=== PATIENT | female | born 1955 | race Caucasian/White ===

== ENCOUNTER → 2017-07-08 | Outpatient (CLI) | payer BC | LOC: BMCIMAGING 08:27 | PROVIDERS: ATTEND Family Medicine | DX: Z13.820 Encounter for screening for osteoporosis (principal); M85.80 Other specified disorders of bone density and structure, unspecified site; R10.9 Unspecified abdominal pain; K76.0 Fatty (change of) liver, not elsewhere classified ==

== ENCOUNTER → 2017-07-09 | Outpatient (CLI) | payer BC | LOC: BMCIMAGING 08:25 | PROVIDERS: ATTEND Family Medicine | DX: Z12.31 Encounter for screening mammogram for malignant neoplasm of breast (principal); Z80.3 Family history of malignant neoplasm of breast | CPT/HCPCS: G0202 ==

== ENCOUNTER 2018-04-22 15:53 | Observation (INO) | payer BC ==
--- NOTE | 2018-04-22 16:11 | EDPHY ---
H & P Time Seen by Provider: 04/22/18 16:10 HPI/ROS: CHIEF COMPLAINT: Transient loss of vision HISTORY OF PRESENT ILLNESS: 62-year-old woman has high triglycerides, no previous history of ophthalmology problem or stroke. She was turning to the side at 6:30 a.m. To get something off her dresser when she suddenly noticed half of her right eye vision was gone and then 10 seconds later her entire right eye vision was gone. It lasted about a minute and half was associated with very mild headache and then resolved. She covered her right eye and the left eye vision was normal, then covering her left eye she could not see anything. She did not have diplopia or ataxia or trouble with speech or strength or sensation in extremities. Loss of vision was essentially almost complete, she could only see only a doss color. Now her vision is back to normal. REVIEW OF SYSTEMS: Eye: HPI ENT: no sore throat Cardiac: no chest pain or syncope Pulmonary: no cough or SOB Abdomen: no vomiting, diarrhea, abdominal pain Musculoskeletal: She has chronic arthritis but no change from usual Skin: no rash Neuro: HPI Constitutional: no fever : no urinary symptoms A comprehensive 10 point review of systems is otherwise negative aside from elements mentioned in the history of present illness. PAST MEDICAL HISTORY: Arthritis, fatty liver, hysterectomy, high triglycerides Social history: Nonsmoker General Appearance: Alert and conversant, cooperative. Eyes: No scleral icterus. Pupils equal reactive extraocular motion intact. Visual schumacher intact to confrontation. ENT, Mouth: Normal mucous membranes. Respiratory: Normal respiratory effort, breath sounds equal, lungs are clear to auscultation. Cardiovascular: Regular rate and rhythm. No murmur. No carotid bruit. Gastrointestinal: Abdomen is soft and non tender. Neurological: Alert, face symmetric, normal motor and sensory in extremities. Speech fluent and normal [id number] and no pronator drift, ambulatory without ataxia. Skin: Warm and dry, no rashes. Musculoskeletal: No peripheral edema. Psychiatric: Not agitated. Emergency Department course/MDM: Patient presents with TIA symptoms of transient painless vision loss in the right eye which have completely resolved. Workup for TIA discussed and consented, 23 hr observation to hospital. 1844: CT per Bennie subtle low density left internal capsule, otherwise negative. 1855: CT results discussed with the patient. Negative angiography per Dr. Bennie, of the head. Negative angio neck, needs workup for thyroid finding 8mm nodule left lobe, per . Smoking Status: Never smoked Constitutional: Initial Vital Signs Temperature (C) 36.6 C 04/22/18 16:01 Heart Rate 83 04/22/18 16:01 Respiratory Rate 18 04/22/18 16:01 Blood Pressure 150/88 H 04/22/18 16:01 O2 Sat (%) 93 04/22/18 16:01 O2 Delivery Mode Room Air Allergies/Adverse Reactions: erythromycin base Allergy (Verified 04/22/18 16:00) Home Medications: Medication Instructions Recorded NK [No Known Home Meds] 04/22/18 Medical Decision Making - Diagnostics EKG Interpretation: 12-lead EKG interpreted by me; official reading is in trace master. My interpretation is sinus rhythm rate 72 and normal intervals. Imaging Results: Imaging Impressions Head CT 04/22/18 17:17 Impression: Subtle hypodensity in the left external capsule may be in indicator of left middle cerebral territory infarction. Concordant results called to Dr. Vignesh Castillo at 18:46 PM General information for patients regarding this examination can be found at [email or web address]. If you have questions or comments about this report, please contact me at (hospital) or [phone] (cell). Head CTA 04/22/18 17:17 Impression: Normal CT angiogram of the brain. No evidence for embolism or thrombosis. Final concordant results discussed with Dr. Vignesh Castillo at 18:53 PM. Imaging: Discussed imaging studies w/ cell plasterer Radiologist Differential Diagnosis: Differential for sudden painless vision loss considered including but not limited to venous occlusion, central retinal artery occlusion, TIA, glaucoma Consult/Admit Bed Type: [place] [id number] - Data Points Laboratory Results: Laboratory Results 04/22/18 16:30 04/22/18 16:30 04/22/18 04/22/18 04/22/18 18:18 17:56 16:30 WBC RBC Hgb POC Hgb 14.3 gm/dL gm/dL (12.6-16.3) Hct POC Hct 42 % % (38-47) MCV MCH MCHC RDW Plt Count MPV Neut % (Auto) Lymph % (Auto) Rosebud % (Auto) Eos % (Auto) Baso % (Auto) Nucleat RBC Rel Count Absolute Neuts (auto) Absolute Lymphs (auto) Absolute Monos (auto) Absolute Eos (auto) Absolute Basos (auto) Absolute Nucleated RBC Immature Gran % Immature Gran # PT INR POC Sodium 139 mEq/L mEq/L (135-145) Sodium 134 mEq/L L mEq/L (135-145) POC Potassium 3.9 mEq/L mEq/L (3.3-5.0) Potassium 4.2 mEq/L mEq/L (3.3-5.0) POC Chloride 102 mEq/L mEq/L (97-110) Chloride 104 mEq/L mEq/L (97-110) Carbon Dioxide 26 mEq/l mEq/l (22-31) Anion Gap 4 mEq/L L mEq/L (8-16) POC BUN 9 mg/dL mg/dL (7-23) BUN 11 mg/dL mg/dL (7-23) Creatinine 0.4 mg/dL L mg/dL (0.6-1.0) POC Creatinine 0.4 mg/dL L mg/dL (0.6-1.0) Estimated GFR > 60 Glucose 103 mg/dL H mg/dL (70-100) POC Glucose 96 mg/dL mg/dL (70-100) Calcium 9.5 mg/dL mg/dL (8.5-10.4) POC Troponin I 0.00 ng/mL ng/mL (0.00-0.08) 04/22/18 04/22/18 16:30 16:30 WBC 5.79 10^3/uL 10^3/uL (3.80-9.50) RBC 4.82 10^6/uL 10^6/uL (4.18-5.33) Hgb 15.1 g/dL g/dL (12.6-16.3) POC Hgb Hct 42.8 % % (38.0-47.0) POC Hct MCV 88.8 fL fL (81.5-99.8) MCH 31.3 pg pg (27.9-34.1) MCHC 35.3 g/dL g/dL (32.4-36.7) RDW 12.3 % % (11.5-15.2) Plt Count 288 10^3/uL 10^3/uL (150-400) MPV 9.8 fL fL (8.7-11.7) Neut % (Auto) 57.2 % % (39.3-74.2) Lymph % (Auto) 31.8 % % (15.0-45.0) Rosebud % (Auto) 8.1 % % (4.5-13.0) Eos % (Auto) 1.7 % % (0.6-7.6) Baso % (Auto) 1.0 % % (0.3-1.7) Nucleat RBC Rel Count 0.0 % % (0.0-0.2) Absolute Neuts (auto) 3.31 10^3/uL 10^3/uL (1.70-6.50) Absolute Lymphs (auto) 1.84 10^3/uL 10^3/uL (1.00-3.00) Absolute Monos (auto) 0.47 10^3/uL 10^3/uL (0.30-0.80) Absolute Eos (auto) 0.10 10^3/uL 10^3/uL (0.03-0.40) Absolute Basos (auto) 0.06 10^3/uL 10^3/uL (0.02-0.10) Absolute Nucleated RBC 0.00 10^3/uL 10^3/uL (0-0.01) Immature Gran % 0.2 % % (0.0-1.1) Immature Gran # 0.01 10^3/uL 10^3/uL (0.00-0.10) PT 13.4 SEC SEC (12.0-15.0) INR 1.00 (0.83-1.16) POC Sodium Sodium POC Potassium Potassium POC Chloride Chloride Carbon Dioxide Anion Gap POC BUN BUN Creatinine POC Creatinine Estimated GFR Glucose POC Glucose Calcium POC Troponin I Point of Care Test Results: Chemistry 04/22/18 04/22/18 18:18 17:56 POC Sodium 139 mEq/L mEq/L (135-145) POC Potassium 3.9 mEq/L mEq/L (3.3-5.0) POC Chloride 102 mEq/L mEq/L (97-110) POC BUN 9 mg/dL mg/dL (7-23) POC Creatinine 0.4 mg/dL L mg/dL (0.6-1.0) POC Glucose 96 mg/dL mg/dL (70-100) POC Troponin I 0.00 ng/mL ng/mL (0.00-0.08) ISTAT H&H 04/22/18 17:56 POC Hgb 14.3 gm/dL gm/dL (12.6-16.3) POC Hct 42 % % (38-47) Departure - Departure Disposition: [facility] Inpatient Acute Clinical Impression: TIA (transient ischemic attack) Qualifiers: Transient cerebral ischemia type: amaurosis fugax Qualified Code(s): G45.3 - Amaurosis fugax Condition: Good
--- NOTE | 2018-04-22 16:40 | CPEKG ---
Heart Rate: 72 RR Interval: 833 P-R Interval: 180 QRSD Interval: 82 QT Interval: 392 QTC Interval: 430 P Windthorst: 73 QRS Windthorst: 42 T Wave Wind[place]st: 35 EKG Severity - NORMAL ECG - EKG Impression: SINUS RHYTHM Electronically Signed By: Vignesh Castillo 22-Apr-2018 16:59:17
[2018-04-22 16:57] LABS: PLATELET COUNT 288 10^3/uL (150-400)
[2018-04-22 17:11] LABS: PROTIME(PATIENT) 13.4 SEC (12.0-15.0)
[2018-04-22] MEDS ORDERED: IOPAMIDOL (ISOVUE 370) 100 ML BTL IV ONE (17:31)
[2018-04-22] MEDS ORDERED: ACETAMINOPHEN 325 MG TAB PO PRN (19:06)
[2018-04-22] MEDS ORDERED: ONDANSETRON DISINTEGRATING 4 MG TAB PO PRN (19:06)
[2018-04-22] MEDS ORDERED: ONDANSETRON 4 MG/2 ML VIAL IVP PRN (19:06)
[2018-04-22] MEDS ORDERED: LABETALOL HCL 5 MG/ML 20 ML MDV IVP PRN (21:59)
[2018-04-22] MEDS ORDERED: MELATONIN 3 MG TAB PO SCH (22:30)
--- NOTE | 2018-04-22 22:54 | GHP ---
[f rep st] HISTORY AND PHYSICAL DATE OF ADMISSION: 04/22/2018 CHIEF COMPLAINT: Right vision loss next. HISTORY OF PRESENT ILLNESS: 62-year-old female with remote history of hypertension, presenting today with right vision loss. This morning at 6:30, she was in bed and turned her head, and noted her nasal vision field was blurred with flesh discoloration. Then lost full vision for 45-60 seconds. Did not have slurred speech, focal weakness, or numbness. A week ago, she was gardening and had an episode of numbness in her left pinky and thumb, lasting 3- 5 minutes. 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 This can also occur if not working at her computer. She has been under lot of stress with her job. She has also been stalked and this is going to court, which has heightened her stress. She also has a dog at home dying of cancer. REVIEW OF SYSTEMS: I completed a 10-point review of systems, negative except as noted in HPI. PAST MEDICAL HISTORY: Hypertension in the past; has been off medications for many years. Arthritis. PAST SURGICAL HISTORY: Hysterectomy, 2001. FAMILY HISTORY: No coronary disease or strokes. SOCIAL HISTORY: Lives in [place]. 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 Drinks 2 drinks a week. Occasional marijuana. No cigarettes. HOME MEDICATIONS: None. ALLERGIES: Erythromycin. PHYSICAL EXAMINATION: VITAL SIGNS: Temperature 36.5, blood pressure 150/88, now 180/87, heart rate in the respirations 16, 94% on room air. GENERAL: Well appearing, sitting in bed, in no acute distress. HEENT: PERRLA. Moist mucous membranes. CV: Regular rate and rhythm. No murmurs, gallops, or rubs. LUNGS : Clear. ABDOMEN: Soft, nontender, nondistended. Positive bowel sounds. : No Adhikari. MUSCULOSKELETAL: 5/5 upper and lower extremities. NEUROLOGIC: 2 through 12 intact. Normal visual schumacher. Good peripheral vision. Negative pronators. Intact uqderb-bi-egbw testing. +2 biceps, patellar, and Achilles reflexes. Normal sensation to touch. PSYCH: Alert, oriented x3. LABORATORY DATA: WBC 5, hemoglobin 15, hematocrit 42, platelets 288. INR is 1 , PTT 13. Sodium 139, potassium 3.9, chloride 102, carbon dioxide 9, creatinine 0.4, glucose 96. Troponin 0.0. EKG: Personally reviewed by me. Normal sinus rhythm. Head CT: Subtle hypodensity in the left external capsule may be indicator of left MCA infarction. CTA: No evidence of embolus or thrombosis. Neck CTA: No occlusion. ASSESSMENT AND PLAN: 1. Right vision loss, concern for stroke. There is a small hypodensity on CT. Will complete evaluation with MRI, echocardiogram, telemetry. Check lipids and A1c. We will allow permissive hypertension tonight. Physical therapy, occupational therapy, speech evaluation. Neurology consult in the morning. 2. Hypertension: She states situational; however, she has a past history. She will need treatment after initial 24 hours. 3. Diet: Regular. 4. Deep venous thrombosis prophylaxis: Sequential compression devices. DISPOSITION: Patient warrants observation admission, given concern for TIA, warranting MRI, echo, and neurology consult. /[id number]/MODL MTDD
[2018-04-23 12:32] VITALS: BP 155/85
--- NOTE | 2018-04-23 12:48 | NEUROPROG ---
Assessment: HOSPITAL NEUROLOGY CONSULT REQUESTING: Francesca Lares MD REASON: visual disturbance HPI: 62 year old right-handed woman with a history of HTN and hypertriglyceridemia who presented to the ED yesterday with a transient monocular visual disturbance. Patient woke early and around 0630 she was walking around the bedroom when she noted visual disturbance. She state that in the right eye only, it was as if a flesh-colored curtain was drawn from the nasal field to the temporal field over about 60 seconds, and then resolved. She had no other focal deficits including weakness, sensory loss, speech/language disturbance, gait change, dizziness, hearing change. She did note a very subtle bifrontal headache after this event without any nausea/photophobia/phonophobia or trigeminal autonomic features. She is noting about a week ago she was gardening and had about 3-5 mins of numbness in the left digit 1 and 5. No other prior neurologic symptoms. She does have HTN for which she used dietary changes in the past, but has been hesitant to start medication. No prior history of stroke/TIA. No ophthalmologic history. No eye pain. No double vision. No painful eye movement. ROS: As per the HPI, otherwise a complete 12 point ROS was performed and is negative ALLERGIES AND MEDS: As recorded in the EMR - reviewed and reconciled PFSH: As per the intake H&P by Dr. Lares from yesterday EXAM: VS reviewed in EMR GEN: WDWN laying in NAD HEENT: NCAT, sclera anicteric, conjunctiva not injected, MMM, oropharynx clear, no scalp tenderness NECK: supple, nontender, no meningismus CV: RRR s1 s2 wo m/r/c/g. Carotid pulses 2+ wo bruit NEURO: MS: awake, alert, oriented to all spheres. Speech nondysarthric. No language disturbance. Follows commands. Attends to both sides. Recent/remote memory grossly intact. Mood euthymic. Good fund of knowledge. CN: pupils 3mm round and reactive. Unable to visualize fundi. VFF. Primary gaze centered. Full ocular motility. Facial sensation preserved. Face symmetric. Hearing grossly intact to finger rub. Palatoglossal movements intact. Shoulder shrug and head turn strong. MOTOR: normal bulk/tone. No adventitial movements. Full power throughout. SENSORY: intact to all modalities throughout. No extinction. COORD: no ataxia FN/HS. Chloé preserved. REFLEX: plantars down. No clonus. DTRS 2/4. GAIT: deferred to PT safety eval DATA REVIEW: Labs reviewed in EMR LDL 74 TTE pending PERSONALLY INTERPRETED RESULTS AND DATA: MRI brain wo - nothing acute, multiple scattered punctate areas of T2 FLAIR hyperintensity in the subcortial white matter most consistent with chronic microvascular ischemic changes. CTA head/neck - widely patent vessels both intracranially and extracranially IMPRESSION AND RECOMMENDATIONS: // TRANSIENT MONOCULAR VISUAL DISTURBANCE Patient with transient horizontal vision loss which is not typical of amaurosis in that the vision loss occurred in the horizontal plane and was not a black out but a flesh-colored obscuration moving from nasal to temporal sides of her vision. Carotids were widely patent, and most true amaurosis is from carotid embolic disease. Event could have been an atypical migraine, but also would consider a primary ophthalmologic event. I do think it would be prudent to optimize her from a vascular perspective for primary prevention, particularly given her HTN and MRI findings (which are likely from her HTN). Recommend she start ASA 81mg daily. Recommend BP optimization with goal normotension - she is now open to medication therapy. Goal normoglycemia with A1c at least < 6.5 - can be checked as outpatient. I am not inclined to start a statin since her LDL is 74 and the event is not clearly cerebrovascular in origin. Recommend follow up with PCP for further vascular risk factor optimization and monitoring. Recommend outpatient ophthalmology evaluation for her events. Recommend PCP check 30-day Holter to screen for the off chance this was atypical amaurosis from cardioembolism - TTE pending. Stroke education provided with emphasis on activating EMS for any abrupt onset neurologic signs/symptoms. Will sign off. Objective: Vital Signs Temp Pulse Resp BP Pulse Ox 36.7 C 63 16 155/85 H 94 04/23/18 12:31 04/23/18 12:31 04/23/18 12:31 04/23/18 12:31 04/23/18 12:31 04/22/18 04/23/18 04/24/18 05:59 05:59 05:59 Intake Total 400 400 Output Total 1450 350 Balance -1050 50 PT 13.4 SEC (12.0-15.0) 04/22/18 16:30 INR 1.00 (0.83-1.16) 04/22/18 16:30 Allergies/Adverse Reactions: erythromycin base Allergy (Verified 04/22/18 16:00)
--- NOTE | 2018-04-23 12:55 | ECHO ---
[email or web address] [address] [address] Main: [phone] Fax: Transthoracic Echocardiogram Name: GABRIEL CANO MR#: [id number] Study Date: 04/23/2018 Study Time: 12:00 PM Date of : 1955 Age: 62 year(s) Height: 170.2 cm (67 in.) Weight: 73.94 kg (163 lb.) BSA: 1.85 m2 Gender: Female Examination: Echo with Agitated Saline Indication: ISCHEMIC STROKE W/O TPA Image Quality: Adequate Contrast: Requested by: Francesca Lares BP: / Heart Rate: Rhythm: Indication: ISCHEMIC STROKE W/O TPA Procedure Staff Medical Authorization Specialist: Francesca Fontenot RDCS Reading Physician: Omid Augustin MD Requesting Provider: Conclusions: Normal study Measurements: Chambers Valvular Assessment AV/MV Valvular Assessment TV/PV Normal Normal Normal Name Value Range Name Value Range Name Value Range Ao Susan (2D): 3.3 cm (1.4 cm-2.6 AV Vmax: 1.24 m/s (1 m/s-1.7 TR Vmax: 2.35 mm/s ( - ) cm) m/s) TR PGmax: 22 mmHg ( - ) IVSd (2D): 1.0 cm (0.6 cm-1.1 AV maxP mmHg ( - ) syst. PAP: 27 mmHg ( - ) cm) AV meanP mmHg ( - ) PV Vmax: 0.76 m/s (0.6 m/s-0.9 LVDd (2D): 4.0 cm (3.9 cm-5.3 ELIJAH (VTI): 2.9 cm ( - ) m/s) cm) MV E Vmax: 0.94 m/s ( - ) PV PGmax: 2 mmHg ( - ) LVDs (2D): 2.8 cm (2.1 cm-4 MV A Vmax: 0.70 m/s ( - ) cm) MV E/A: 1.34 ( - ) LVPWd (2D): 1.0 cm ( - ) MV PHT: 0.053 s ( - ) LVOTd 2.0 cm 2.0 cm mm MVA (PHT): 4.2 s ( - ) LVEF (BP): 65 % (>=55 %) RVDd(2D): 3.2 cm (1.9 cm-3.8 cmmm) Continued Measurements: Chambers Valvular Assessment AV/MV Valvular Assessment TV/PV Name Value Name Value Name Value LADs: 3.7 cm MV DecTime: 187 m/s CVP (est.): 5 mmHg LADs Lon.5 cm MV E' Septal: 0.07 m/s LA Area: 14.6 cm2 MV E/E' Septal: 12.80 LA Volume: 36 ml MV E/E' Lateral: 14.40 LA Volume Index: 19.5 ml/m2 RA Area: 15.6 cm2 Patient: GABRIEL CANO Study Date: 04/23/2018 Page 1 of 2 12:00 PM Additional Vessels Name Value Ao Ascendin.8 cm Findings: Left Ventricle: Normal size left ventricle. No LV hypertrophy. Normal global systolic LV function. EF is 65 %. No regional wall motion abnormality. Normal diastolic LV function. Right Ventricle: Normal size right ventricle. Normal RV function. Left Atrium: The left atrium is normal in size. An agitated saline study was performed and was negative for intracardiac shunting. Right Atrium: The right atrium is normal in size. Mitral Valve: The mitral valve is normal in appearance and function. Mild mitral valve regurgitation is present. No mitral stenosis is present. Aortic Valve: The aortic valve is tri-leaflet. Mild aortic valve regurgitation is present. No aortic valve stenosis is present. Tricuspid Valve: The tricuspid valve is normal in appearance and function. Mild tricuspid regurgitation is present. The pulmonary artery pressure is normal. Right ventricular systolic pressure measures 27mmHg. Pulmonic Valve: The pulmonic valve is normal in appearance and function. There is no pulmonic regurgitation seen. Aorta: The aorta is normal. Normal size aortic root measuring 3.3 cm. Normal size ascending aorta measuring 2.8 cm. Pericardium: No pericardial effusion. No pleural effusion. (No Signature Object) Patient: GABRIEL CANO Study Date: 04/23/2018 Page 2 of 2 12:00 PM [id number]
--- NOTE | 2018-04-23 15:01 | ASMTCMCOM ---
CM Note CM Note Notes: Pt in for TIA, she had some R vision loss. Therapies and neurology clear pt for home. Pt medically stable for d/c, to follow up with PCP and opthalmology. No CM d/c needs identified. Date Signed: 04/23/2018 03:00 PM Electronically Signed By:KEVIN Rivera
--- NOTE | 2018-04-23 19:18 | GDS ---
[f rep st] DISCHARGE SUMMARY DISCHARGE DIAGNOSES: 1. Transient monocular visual disturbance, possible transient ischemic attack. 2. Hypertension. HISTORY: The patient is a 62-year-old female who presented with transient monocular visual disturban ce. This was a horizontal vision loss which is not typical of amaurosis. Her carotids were widely p atent. Neurology saw her in consultation. They think it may have been a primary ophthalmologic even t. Her MRI of brain is negative. Echo and CT angiogram head and neck were unremarkable. It is heidi mmended she start aspirin 81 mg p.o. daily. She did have findings on her MRI consistent with longsta nding hypertension and optimizing blood pressure control is recommended. She had been trying diet an d exercise. We are now recommending lisinopril 10 mg p.o. daily as her systolic blood pressures are running consistently around 160. We did not start a statin since her LDL of 74, and the event is not clearly cerebrovascular in origin. DISCHARGE MEDICATIONS: Please see computerized record for full detailed list. NEW MEDICATIONS: 1. Aspirin 81 mg p.o. daily. 2. Lisinopril 10 mg p.o. daily. ADDITIONAL DISCHARGE INSTRUCTIONS: 1. Outpatient ophthalmology consultation. 2. Consider outpatient 30-day Holter monitoring. Patient was seen and examined by me on the day of discharge. /[id number]/MODL
== END 2018-04-23 14:56 | disposition home or self-care (01) ==
LOC: F3N 20:03
PROVIDERS: ADMIT Internal Medicine; ATTEND Internal Medicine
DX: H53.121 Transient visual loss, right eye (principal); M19.90 Unspecified osteoarthritis, unspecified site; F12.90 Cannabis use, unspecified, uncomplicated; Z90.710 Acquired absence of both cervix and uterus
CPT/HCPCS: 70450; 70496; 70498; 70551; 92523; 93005; 93306; 97161; 99285; G0378; 82435-PO; 82565-PO; 82947-PO; 84132-PO; 84295-PO; 84484-PO; 84520-PO; 85014-PO; Q9967

== ENCOUNTER → 2018-09-27 | Outpatient (CLI) | payer BC | LOC: BMCIMAGING 12:57 | PROVIDERS: ATTEND Family Medicine | DX: Z12.31 Encounter for screening mammogram for malignant neoplasm of breast (principal); Z80.3 Family history of malignant neoplasm of breast ==